=== PATIENT | male | born 1950 | race Caucasian/White ===

== ENCOUNTER 2017-04-04 19:48 | Emergency (ER) | payer OTHER ==
[~2017-04-04] VITALS: Ht 175.3 cm; Wt 82.4 kg
[~2017-04-04 19:48] MED LIST: CARAFATE1 GM PO; CELEXA40 MG PO; COMBIVENT200 INHALA IH; DEXILANT60 MG PO; FLOVENT 11120 INHALA IH; SINGULAIR10 MG PO; SYNTHROID125 MCG PO
[2017-04-04 21:21] LABS: HEMATOCRIT 42.7 % (38.0-50.0); MCH 33.8 PG (29.0-34.0); MCV 99.5 FL (86-99); MEAN PLAT.VOLUME 9.8 uM^3 (9.0-12.4); PLATELET COUNT 195 K/uL (156-360); RBC DIS.WIDTH-CV 12.8 % (11.8-14.6); RBC DIS.WIDTH-SD 47.6 % (39-53); RED BLOOD COUNT 4.29 M/uL (4.00-5.50); WHITE BLOOD COUNT 7.3 K/uL (4.1-10.2)
[2017-04-04 21:28] LABS: CHLORIDE 106 mEq/L (99-109); POTASSIUM 4.6 mEq/L (3.7-5.4); SODIUM 139 mEq/L (136-147)
[2017-04-04 21:30] LABS: GLUCOSE 86 mg/dL (70-99)
[2017-04-04 21:31] LABS: ANION GAP 7 MEQ/L (2-14)
[2017-04-04 21:34] LABS: GFR ESTIMATE (CALCULATED) > 59 mL/min/; UREA NITROGEN (BUN) 19 mg/dL (9-23)
[2017-04-04 22:28] LABS: ADD MIUA? NO; BILIRUBIN NEGATIVE; BLOOD NEGATIVE; COLOR YELLOW ((YELLOW)); GLUCOSE (STRIP) NEGATIVE; KETONES NEGATIVE; LEUKOCYTES NEGATIVE; NITRITE NEGATIVE; PROTEIN (STRIP) NEGATIVE; SPECIFIC GRAVITY 1.017 (1.000-1.030); UCUL ADDED? NO; UROBILINOGEN 0.2 MG/DL (0.2-1.0)
[2017-04-04] MEDS ORDERED: FLEXERIL10 MG PO (22:33)
[2017-04-04] MEDS ORDERED: LIDODERM 5% P1 PATCH TD (22:33)
[2017-04-04] MEDS ORDERED: NAPROXEN500 MG PO (22:33)
[2017-04-04 22:36] VITALS: BP 141/75
== END 2017-04-04 22:45 | disposition home or self-care (01) ==
LOC: EME 19:48
PROVIDERS: Physician Assistant Medical
DX: N39.0 Urinary tract infection, site not specified (principal); M54.5 Low back pain; E03.9 Hypothyroidism, unspecified; J45.909 Unspecified asthma, uncomplicated
CPT/HCPCS: 80048; 81003; 85027; 99281; 99284